=== PATIENT | male | born 1990 | race Two or more races ===

== ENCOUNTER 2024-08-23 03:01 | Emergency (ER) | payer MEDICAID, OTHER ==
[~2024-08-23] VITALS: Ht 177.8 cm; Wt 77.0 kg
[2024-08-23] MEDS: LORazepam 2MG/ML-1ML VIAL IV ONE (03:43)
[2024-08-23] MEDS: SODIUM CHLORIDE 0.9% 1,000 ML IV ONE (03:44)
--- NOTE | 2024-08-23 03:50 | ED.PDOC ---
Altered Mental Status HPI Comments 33-year-old male with unknown past medical history brought in by EMS with altered mental status. Per EMS, was found on the sidewalk. P.D. was on scene. Patient was reportedly found with a shoelace tied around his left arm like a tourniquet, and was agitated. Patient stated to EMS that his left upper extremity was "cut off," and he was "bleeding internally." He admitted to using fentanyl yesterday. On arrival to ED, patient is a difficult historian, but is alert, oriented x3 and denies any recent injury or illness. EMS reports patient's blood glucose on scene was 64. Patient was given IV D10 with improvement of blood glucose to 159. 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 Allergies: Coded Allergies: NO KNOWN ALLERGIES (Unverified , 02/09/14) Information Source: Emergency Med Personnel Mode of Arrival: EMS Severity: Unable to Care for Self Timing: Hours Duration: Since onset Past Medical History PAST MEDICAL HISTORY: Unknown, Unobtainable Surgical History: Unknown, Unobtainable Family History Family History: Unknown, Unobtainable Social History Smoker: Unknown, Unobtainable Alcohol: Unknown, Unobtainable Drugs: Other (Fentanyl) Lives In: Homeless Unable to Obtain due to: Altered Mental Status Physical Exam General Appearance: No Apparent Distress HEENT: PERRL/EOMI, Other (Face symmetric. Moist mucous membranes.) Neck: Full Range of Motion, Normal Inspection Respiratory: Lungs Clear, No Accessory Muscle Use, No Respiratory Distress, Normal Breath Sounds Cardiovascular: No Edema, No JVD, Regular Rate/Rhythm Breast Exam: Deferred Gastrointestinal: Non Tender, Soft Genitalia: Deferred Pelvic: Deferred Rectal: Deferred Extremities: Normal inspection, Normal range of motion, Non-tender, No pedal edema Neurologic: Alert (Oriented x3), Other (Agitated. Inappropriate answers to questions.) Cerebellar Function: NOT DONE Reflexes: NOT DONE Skin: Dry, Normal Color, Warm Lymphatic: NOT DONE Was a procedure done? Was a procedure done?: No Differential Diagnosis (ALOC) Differential Diagnosis: Dehydration, Hypoglycemia, Encephalopathy, Drug Overdose, ETOH Intoxication, Other (Psychosis/psychiatric illness, among others) X-Ray, Labs, Meds, VS Vital Signs Date Time Temp Pulse Resp B/P (MAP) Pulse Ox O2 Delivery O2 Flow Rate FiO2 08/23/24 04:40 74 15 94 Room Air* 0 21 08/23/24 03:25 98.1 74 15 101/55 (70) 94 98.1 08/23/24 03:01 98.4 120 20 119/68 (85) 98 98.4 Lab Test 08/23/24 03:35 Range/Units White Blood Count 7.7 4.4-10.8 10^3/uL Red Blood Count 4.18 L 4.5-5.90 10^6/uL Hemoglobin 12.9 L 13.5-17.5 g/dL Hematocrit 37.8 L 41.0-53.0 % Mean Corpuscular Volume 90.4 80.0-100.0 fL Mean Corpuscular Hemoglobin 30.9 28.0-32.0 pg Mean Corpuscular Hemoglobin Concent 34.2 32.0-36.0 g/dL Red Cell Distribution Width 13.9 11.8-14.3 % Platelet Count 357 140-450 10^3/uL Mean Platelet Volume 8.1 6.9-10.8 fL Neutrophils (%) (Auto) 72.3 37.0-80.0 % Lymphocytes (%) (Auto) 16.2 10.0-50.0 % Monocytes (%) (Auto) 11.0 0.0-12.0 % Eosinophils (%) (Auto) 0.1 0.0-7.0 % Basophils (%) (Auto) 0.4 0.0-2.0 % Neutrophils # (Auto) 5.6 1.6-8.6 10 ^3/uL Lymphocytes # (Auto) 1.3 0.4-5.4 10 ^3/uL Monocytes # (Auto) 0.8 0-1.3 10 ^3/uL Eosinophils # (Auto) 0 0-0.8 10 ^3/uL Basophils # (Auto) 0 0-0.2 10 ^3/uL Nucleated Red Blood Cells 0.1 % Sodium Level 145 136-145 mmol/L Potassium Level 3.5 3.5-5.1 mmol/L Chloride Level 109 H 98-107 mmol/L Carbon Dioxide Level 24 20-31 mmol/L Anion Gap 12 5-15 Blood Urea Nitrogen 19 9-23 mg/dL Creatinine 1.30 0.700-1.30 mg/dL Glomerular Filtration Rate Calc 74 >90 mL/min BUN/Creatinine Ratio 14.6 10.0-20.0 Serum Glucose 83 74-106 mg/dL Calcium Level 10.2 8.7-10.4 mg/dL Plasma/Serum Blood Alcohol < 3.0 <10 mg/dL Current Medications Medications (Trade) Dose Ordered Sig/Jeff Route Start Time Stop Time Status Last Admin Sodium Chloride 1,000 ml @ 1,000 mls/hr Q1H ONCE IV 08/23/24 03:30 08/23/24 04:29 DC 08/23/24 03:44 Lorazepam (Ativan Inj) 1 mg ONCE ONCE IV 08/23/24 03:30 08/23/24 03:31 DC 08/23/24 03:43 X-Ray, Labs, Meds, VS Comment 33-year-old male with unknown past medical history brought in by EMS from the street with agitation and hypoglycemia Vitals remarkable for initial heart rate of 120 Exam remarkable for agitation, orientation x3 with inappropriate/nonsensical answers to questions Rhythm strip independently interpreted by me: Sinus tach, rate 120, no ectopy. CBC, metabolic panel and alcohol level unremarkable. UA and Urine drug screen pending Patient treated with the following in the ED: 1 L 0.9 normal saline IV bolus, Ativan 1 mg IV On re-evaluation, patient is resting comfortably with stable vitals. Tachycardia has resolved. Patient is now medically cleared for psychiatric evaluation. Plan is to obtain tele psych evaluation. Disposition will be per tele psych recommendations. Patient endorsed to the oncoming ED physician at 7:00 a.m. pending tele psych evaluation. Time of 1ST Reevaluation: 03:40 Reevaluation 1ST: Unchanged Time of 2ND Reevaluation: 05:00 Reevaluation 2ND: Improved Patient Education/Counseling: Diagnosis, Treatment, Other (confused, disoriented) Family Education/Counseling: No Family Present SEPSIS Sepsis Screen Date sepsis recognized/suspect: Aug 23, 2024 Time Sepsis recognized/suspect: 300 Recent Procedure: No On Antibiotic Therapy: No Respiratory Rate >20: No Heart Rate >90: No Temp<36 C (96.8 F) or >38.3 C: No SBP <90 or MAP <65 mmHG: No New Acute Mental Status Change: No Is the patient on CPAP, BIPAP,: No Physician Orders Urinalysis (08/23/24 03:19) Drug Screen (08/23/24 03:19) Film Critic (08/23/24 03:19) *Tele Psych Consult (08/23/24 05:01) Vital Signs Date Time Temp Pulse Resp B/P (MAP) Pulse Ox O2 Delivery O2 Flow Rate FiO2 08/23/24 04:40 74 15 94 Room Air* 0 21 08/23/24 03:25 98.1 74 15 101/55 (70) 94 98.1 08/23/24 03:01 98.4 120 20 119/68 (85) 98 98.4 Laboratory Tests Test 08/23/24 03:35 White Blood Count 7.7 10^3/uL (4.4-10.8) Medications Medications Dose Ordered Sig/Jeff Route Start Time Stop Time Status Last Admin Dose Admin Lorazepam 1 mg ONCE ONCE IV 08/23/24 03:30 08/23/24 03:31 DC 08/23/24 03:43 Sodium Chloride 1,000 ml @ 1,000 mls/hr Q1H ONCE IV 08/23/24 03:30 08/23/24 04:29 DC 08/23/24 03:44 Departure 1 Departure Time of Disposition: 06:00 Impression: Primary Impression: Altered mental status Disposition: 30 STILL A PATIENT Condition: Fair Critical Care Note Critical Care Time?: No Stability Stability form required: No Heart Score Heart Score: Heart Score Response (Comments) Value History N/A 0 EKG N/A 0 Age N/A 0 Risk Factors N/A 0 Troponin N/A 0 Total 0 I personally scribed for JAS WILLARD MD ([email or web address]) on 08/23/24 at 03:50. Electronically submitted by Ben Ward ([email or web address]). JAS WILLARD MD Aug 23, 2024 03:50
[2024-08-23 03:57] LABS: Potassium 3.5 mmol/L (3.5-5.1); Sodium 145 mmol/L (136-145)
[2024-08-23 03:58] LABS: Anion Gap 12 (5-15); Carbon Dioxide 24 mmol/L (20-31)
[2024-08-23 03:59] LABS: Calcium 10.2 mg/dL (8.7-10.4)
[2024-08-23 04:03] LABS: Glucose 83 mg/dL (74-106)
[2024-08-23 04:04] LABS: BUN/Creatinine Ratio 14.6 (10.0-20.0); Blood Urea Nitrogen 19 mg/dL (9-23)
[2024-08-23 04:11] LABS: Chloride 109 mmol/L (98-107)
[2024-08-23 04:18] LABS: Hematocrit 37.8 % (41.0-53.0); Hemoglobin 12.9 g/dL (13.5-17.5); Mean Corpuscular Hemoglobin 30.9 pg (28.0-32.0); Mean Corpuscular Volume 90.4 fL (80.0-100.0); Nucleated Red Blood Cells % 0.1 %
[2024-08-23 04:40] VITALS: PULSE 74; RESP 15; O2SAT 94
[2024-08-23 08:00] VITALS: TEMP 98.3
[2024-08-23 16:00] VITALS: BP 103/60; PULSE 73; RESP 15; O2SAT 98
== END 2024-08-23 03:38 | disposition left against medical advice (07) ==
LOC: EDUNIT# 03:01 → ER 03:01 → EDBD 03:01 → ER 03:38
DX: R41.82 Altered mental status, unspecified (principal); F17.200 Nicotine dependence, unspecified, uncomplicated; Z59.00 Homelessness unspecified
CPT/HCPCS: 36415; 80048; 80320; 85025; 96361; 96374; 99285; J2060; J7030